=== PATIENT | male | born 1985 | race African-American/Black ===

== ENCOUNTER 2016-10-31 21:20 | Emergency (ER) | payer SELFPAY ==
[~2016-10-31] VITALS: Ht 172.7 cm; Wt 69.7 kg
[~2016-10-31 21:20] MED LIST: SULF1TAB47 PO; Z.0.NO CURRENT MEDS
[2016-10-31 21:44] VITALS: BP 132/82; PULSE 125; RESP 18; TEMP 100.5; O2SAT 95
[2016-10-31] MEDS ORDERED: LIDOCAINE 1%/EPINEPHrine 1:100,000 SOLN 20 ML VIAL INFIL ONE (22:00)
[2016-10-31 22:04] VITALS: BP 132/82; PULSE 86; RESP 18; TEMP 100.5; O2SAT 97
[2016-10-31] MEDS ORDERED: LIDOCAINE HCL 1% 50 ML VIAL INFIL ONE (22:15)
[2016-10-31] MEDS ORDERED: HYDR-3535 PO (22:21)
--- NOTE | 2016-10-31 22:21 | PD ---
HPI Chief Complaint: Skin Problem Time Seen by Provider: 21:55 Travel History International Travel<30 days: No Contact w/Intl Traveler<30days: No Traveled to known affect area: No History of Present Illness HPI This 31-year-old male is complaining of swelling and pain of his right sided buttock. He went to [facility] and had an incision and drainage done there but he says he did not get much fluid out. He was put on Bactrim and Keflex. The area involved has become more swollen. It is quite painful. He does have low-grade fever. He is generally healthy. PFSH Past Medical History Cancer: No Cardiovascular Problems: No Diminished Hearing: No Endocrine: No Gastrointestinal Disorders: No Genitourinary: No Immune Disorder: No Implanted Vascular Access Dvce: No Musculoskeletal: No Neurologic: No Psychiatric: No Reproductive: No Respiratory: No Tetanus Vaccination: < 5 Years Influenza Vaccination: No Past Surgical History Pacemaker: No Other Surgery: Yes (cyst removed from chin) Social History Alcohol Use: Yes ("OCCASIONALLY") Tobacco Use: Yes (1/2 PPD) Substance Use: Yes (EXTACI, MARAJUANA) Allergies-Medications (Allergen,Severity, Reaction): Coded Allergies: No Known Allergies (Verified , 10/31/16) Reported Meds & Prescriptions Reported Meds & Active Scripts Active No Active Prescriptions or Reported Medications Review of Systems General / Constitutional: Positive: Fever, Chills Eyes: No: Diploplia HENT: No: Headaches Cardiovascular: No: Chest Pain or Discomfort, Palpitations Respiratory: No: Cough Gastrointestinal: No: Nausea Genitourinary: No: Urgency Musculoskeletal: Positive: Pain, No: Myalgias Skin: Positive Lumps Neurologic: No: Weakness, Dizziness Hematologic/Lymphatic: No: Easy Bruising Physical Exam Narrative GENERAL: Well-developed male SKIN: Focused skin assessment warm/dry. HEAD: Atraumatic. Normocephalic. EYES: Pupils equal and round. No scleral icterus. No injection or drainage. ENT: No nasal bleeding or discharge. Mucous membranes pink and moist. NECK: Trachea midline. No JVD. GASTROINTESTINAL: Abdomen soft, non-tender, nondistended. Hepatic and splenic margins not palpable. On the right buttock at the edge of the gluteal cleft is an area of induration and swelling which measures about 3 x 1 cm in size. It is quite tense. MUSCULOSKELETAL: No obvious deformities. No clubbing. No cyanosis. No edema. NEUROLOGICAL: Awake and alert. No obvious cranial nerve deficits. Motor grossly within normal limits. Normal speech. PSYCHIATRIC: Appropriate mood and affect; insight and judgment normal. Data Data Last Documented VS Vital Signs Date Time Temp Pulse Resp B/P Pulse Ox O2 Delivery O2 Flow Rate FiO2 10/31/16 22:07 89 18 10/31/16 22:04 100.5 132/82 97 Orders Lidocai-Epi 1%-1:100,000 Inj (Xylocaine- (10/31/16 22:00) Lidocaine 1% Inj (50 Ml) (Xylocaine 1% I (10/31/16 22:15) MDM Medical Decision Making Medical Screen Exam Complete: Yes Emergency Medical Condition: Yes Medical Record Reviewed: Yes Differential Diagnosis Differential includes cellulitis, abscess Narrative Course The area was anesthetized with 1% lidocaine. A 1.5 cm incision was made and pus was obtained. As much pus as possible was expressed from the wound. Loculations were broken up with a forceps. Quarter-inch packing was inserted patient tolerated the procedure well Procedures Procedure Narrative After verbal consent was obtained the area was anesthetized with 1% lidocaine. A 1.5 cm incision was made and thick pus was obtained. Loculations were broken up with a forceps. Quarter-inch packing was inserted Diagnosis Primary Impression: Abscess of buttock, right Scripts Hydrocodone-Acetaminophen (Lortab)10-325 Mg Tab1 Tab PO Q4H PRN (PAIN) #20 TAB Ref 0 Prov:Vinicio Sargent MD 10/31/16 Disposition: 01 DISCHARGE HOME Condition: Stable Vinicio Sargent MD Oct 31, 2016 22:21
[2016-10-31 22:58] VITALS: BP 128/84; PULSE 88; RESP 18; O2SAT 97
== END 2016-10-31 22:58 | disposition home or self-care (01) ==
LOC: PHED 21:20
DX: L02.31 Cutaneous abscess of buttock (principal); F17.200 Nicotine dependence, unspecified, uncomplicated
CPT/HCPCS: 10061

== ENCOUNTER 2017-08-06 17:05 | Emergency (ER) | payer SELFPAY ==
[~2017-08-06] VITALS: Ht 172.7 cm; Wt 68.2 kg
[~2017-08-06 17:05] MED LIST changes: +HYDR-3535 PO; -SULF1TAB47 PO; -Z.0.NO CURRENT MEDS
[2017-08-06 17:07] VITALS: BP 141/71; PULSE 96; RESP 16; TEMP 99.5; O2SAT 98
[2017-08-06] MEDS ORDERED: METR-1 PO (18:07)
[2017-08-06] MEDS ORDERED: IBUP1TAB7 PO (18:07)
[2017-08-06] MEDS ORDERED: CIPR-9 PO (18:07)
--- NOTE | 2017-08-06 18:14 | PD ---
HPI Chief Complaint: Skin Problem Time Seen by Provider: 17:35 Travel History International Travel<30 days: No Contact w/Intl Traveler<30days: No Traveled to known affect area: No History of Present Illness HPI 32-year-old male presents for evaluation of 3 days of left buttocks pain. Pain is throbbing, constant, worse when sitting. He has had abscesses in his buttocks and pilonidal region several times in the past. He reports that he had a temperature of 100.1 a few days ago but none since then. Denies any drainage, rectal pain, abdominal pain, nausea or vomiting. He has no other complaints at this time. PFSH Past Medical History Cancer: No Cardiovascular Problems: No Diminished Hearing: No Endocrine: No Gastrointestinal Disorders: No Genitourinary: No Immune Disorder: No Implanted Vascular Access Dvce: No Musculoskeletal: No Neurologic: No Psychiatric: No Reproductive: No Respiratory: No Past Surgical History Pacemaker: No Other Surgery: Yes (cyst removed from chin) Social History Alcohol Use: Yes ("OCCASIONALLY") Tobacco Use: Yes (1/2 PPD) Substance Use: Yes (EXTACI, MARAJUANA) Allergies-Medications (Allergen,Severity, Reaction): Coded Allergies: No Known Allergies (Verified , 10/31/16) Reported Meds & Prescriptions Reported Meds & Active Scripts Active Ibuprofen 800 Mg Tab 800 Mg PO Q6HR PRN Flagyl (Metronidazole) 500 Mg Tab 500 Mg PO BID 10 Days Cipro (Ciprofloxacin HCl) 500 Mg Tab 500 Mg PO BID 10 Days Lortab (Hydrocodone-Acetaminophen) 10-325 Mg Tab 1 Tab PO Q4H PRN Review of Systems Except as stated in HPI: all other systems reviewed are Neg Physical Exam Narrative GENERAL: This is a well-developed well-nourished male in no acute distress SKIN: Warm and dry. The patient has a large area of induration and erythema/ fluctuance in the left upper gluteal cleft region. There is no drainage. Old scars are noted. HEAD: Atraumatic. Normocephalic. EYES: Pupils equal and round. No scleral icterus. No injection or drainage. ENT: No nasal bleeding or discharge. Mucous membranes pink and moist. NECK: Trachea midline. No JVD. CARDIOVASCULAR: Regular rate and rhythm. No murmur appreciated. RESPIRATORY: No accessory muscle use. Clear to auscultation. Breath sounds equal bilaterally. GASTROINTESTINAL: Abdomen soft, non-tender, nondistended. Hepatic and splenic margins not palpable. MUSCULOSKELETAL: No obvious deformities. No clubbing. No cyanosis. No edema. NEUROLOGICAL: Awake and alert. No obvious cranial nerve deficits. Motor grossly within normal limits. Normal speech. PSYCHIATRIC: Appropriate mood and affect; insight and judgment normal. Data Data Last Documented VS Vital Signs Date Time Temp Pulse Resp B/P (MAP) Pulse Ox O2 Delivery O2 Flow Rate FiO2 08/06/17 17:07 99.5 96 16 141/71 (94) 98 Orders Orders Ampicillin-Sulbactam Inj (Unasyn Inj) (08/06/17 18:15) Levofloxacin (Levaquin) (08/06/17 18:15) Ed Discharge Order (08/06/17 18:06) Wound Culture And Gram Stain (08/06/17 18:06) [facility] Medical Decision Making Medical Screen Exam Complete: Yes Emergency Medical Condition: Yes Medical Record Reviewed: Yes Differential Diagnosis Buttocks abscess, cellulitis, pilonidal abscess, myositis Narrative Course Patient has a large area of cellulitis/abscess formation left upper gluteal cleft. Given the degree of his findings, initially there is discussion in regards to taking CT imaging and lab work, the patient is declining and would prefer a bedside incision and drainage to be performed. This seems reasonable given his age and otherwise good health. A large amount of pus was expressed. Wound culture was performed. The patient was given Unasyn and Levaquin and he will be discharged with Cipro and Flagyl for anaerobic and gram-negative coverage. The patient will return in 2 days for wound recheck and packing removal. Procedures Procedure Narrative INCISION AND DRAINAGE OF ABSCESS: The area was prepped and was sterilely draped. A subcutaneous wheal of 1% Xylocaine with a total number 10 mL was used to anesthetize the area. The area was properly anesthetized. A number 11 scalpel was used to make a 2-cm incision across the area of the abscess. Cultures were obtained. The abscess was drained an irrigated with normal saline. Quarter inch iodoform packing was placed in the wound. Sterile dressing applied. Patient advised to have packing removed in two days. Diagnosis Primary Impression: Left buttock abscess Additional Instructions: Return in 2 days for wound recheck. Take medications as prescribed. Med/Other Pt SpecificInfo: Prescription(s) given, Wound Care Scripts Ibuprofen (Ibuprofen) 800 Mg Tab 800 MG PO Q6HR Y for PAIN, #40 TAB 0 Refills Prov: Lorne Carbajal MD 08/06/17 Metronidazole (Flagyl) 500 Mg Tab 500 MG PO BID for Infection for 10 Days, #20 TAB 0 Refills Prov: Lorne Carbajal MD 08/06/17 Ciprofloxacin (Cipro) 500 Mg Tab 500 MG PO BID for Infection for 10 Days, #20 TAB 0 Refills Prov: Lorne Carbajal MD 08/06/17 Disposition: 01 DISCHARGE HOME Condition: Stable Sarthak Carr Aug 06, 2017 18:14
[2017-08-06] MEDS ORDERED: AMPICILLIN-SULBACTAM INJ 3 GM VIAL IM ONE (18:15)
[2017-08-06] MEDS ORDERED: LEVOFLOXACIN 750 MG TAB PO ONE (18:15)
[2017-08-06] MEDS ORDERED: ACETAMINOPHEN/HYDROcodone 325 MG/5 MG TAB PO ONE (19:00)
== END 2017-08-06 19:07 | disposition home or self-care (01) ==
LOC: NEPD 17:05
DX: L02.31 Cutaneous abscess of buttock (principal); F17.210 Nicotine dependence, cigarettes, uncomplicated; F12.90 Cannabis use, unspecified, uncomplicated; F19.90 Other psychoactive substance use, unspecified, uncomplicated
CPT/HCPCS: 10061; 87070; 96372; 99284; J0295; 87205